=== PATIENT | male | born 1985 | race Caucasian/White ===

== ENCOUNTER 2021-06-23 17:16 | Emergency (ER) | payer SELFPAY ==
[~2021-06-23] VITALS: Ht 175.3 cm; Wt 78.0 kg
[2021-06-23 17:23] VITALS: BP 122/84
== END 2021-06-23 18:03 | disposition left against medical advice (07) ==
LOC: ER 17:16
DX: F10.229 Alcohol dependence with intoxication, unspecified (principal); Y90.9 Presence of alcohol in blood, level not specified
CPT/HCPCS: 99283